=== PATIENT | male | born 1955 | race Caucasian/White ===

== ENCOUNTER 2016-12-03 09:53 | Day surgery (SDC) | payer OTHER ==
[~2016-12-03] VITALS: Ht 182.9 cm; Wt 88.0 kg
[~2016-12-03 09:53] MED LIST: ALTACE10 MG PO; COUMADIN2 MG PO; FLOMAX0.4 MG PO; HYDROCHLOROTHIA25 MG PO; NICORETTE2 M1 BC; PROTONIX40 MG PO; TOPROL XL25 MG PO; ZANTAC150 MG PO
== END 2016-12-03 17:00 | disposition home or self-care (01) ==
LOC: CATH 09:53
DX: I25.10 Atherosclerotic heart disease of native coronary artery without angina pectoris (principal); I34.0 Nonrheumatic mitral (valve) insufficiency; I10 Essential (primary) hypertension; I71.2 Thoracic aortic aneurysm, without rupture; I48.91 Unspecified atrial fibrillation; Z79.01 Long term (current) use of anticoagulants
CPT/HCPCS: C1769; C1887; J1644; J2250; J3010

== ENCOUNTER 2017-02-07 09:43 | Emergency (ER) | payer OTHER ==
[~2017-02-07] VITALS: Ht 185.4 cm; Wt 87.1 kg
[2017-02-07 10:47] LABS: EOSINOPHIL (%) 0.9 % (0-5); EOSINOPHIL COUNT 0.1 K/uL (0-0.3); HEMATOCRIT 36.2 % (38.0-50.0); IMMATURE GRANULOCYTE (%) 0.3 % (0.0-0.7); INSTRUMENT ABS NEUTROPHIL CT 6.3 K/uL; LYMPHOCYTE COUNT 0.9 K/uL (1.0-2.8); MCH 25.9 PG (29.0-34.0); MCHC 30.7 G/DL (30.0-36.0); MCV 84.4 FL (86-99); MEAN PLAT.VOLUME 10.3 uM^3 (9.0-12.4); MONOCYTE (%) 6.9 % (3-12); MONOCYTE COUNT 0.5 K/uL (0-0.8); NEUTROPHIL (%) 80.2 % (45-76); NEUTROPHIL COUNT 6.3 K/uL (1.8-6.4); PLATELET COUNT 321 K/uL (156-360); RBC DIS.WIDTH-CV 14.7 % (11.8-14.6); RBC DIS.WIDTH-SD 45.4 % (39-53); RED BLOOD COUNT 4.29 M/uL (4.00-5.50); WHITE BLOOD COUNT 7.9 K/uL (4.1-10.2)
[2017-02-07 10:59] LABS: CHLORIDE 103 mEq/L (99-109); POTASSIUM 4.3 mEq/L (3.7-5.4); SODIUM 140 mEq/L (136-147)
[2017-02-07 11:01] LABS: GLUCOSE 106 mg/dL (70-99)
[2017-02-07 11:02] LABS: ANION GAP 14 MEQ/L (2-14)
[2017-02-07 11:04] LABS: INTER. NORMALIZED RATIO 1.4
[2017-02-07 11:05] LABS: GFR ESTIMATE (CALCULATED) > 59 mL/min/
[2017-02-07 11:06] LABS: PTT 32.3 SEC (25-37); UREA NITROGEN (BUN) 20 mg/dL (9-23)
[2017-02-07 11:11] LABS: TROP-I INTERPRETATION NEGATIVE; TROPONIN-I < 0.01 ng/mL (0.0-0.30)
[2017-02-07] MEDS ORDERED: ELIQUIS5 MG PO (12:21)
[2017-02-07 13:37] LABS: TROP-I INTERPRETATION NEGATIVE; TROPONIN-I < 0.01 ng/mL (0.0-0.30)
[2017-02-07] MEDS ORDERED: TYLENOL WITH C1 EACH PO (14:14)
[2017-02-07 14:23] VITALS: BP 119/92
== END 2017-02-07 14:21 | disposition home or self-care (01) ==
LOC: EME 09:43
PROVIDERS: Emergency Medicine
DX: R09.1 Pleurisy (principal); I48.91 Unspecified atrial fibrillation; Z79.01 Long term (current) use of anticoagulants; Z95.1 Presence of aortocoronary bypass graft; Z87.891 Personal history of nicotine dependence
CPT/HCPCS: 71010; 71275; 80048; 84484; 85025; 85610; 85730; 93005; 99281; 99285; J7030